=== PATIENT | male | born 1960 | race Caucasian/White ===

== ENCOUNTER 2023-12-10 16:01 | Emergency (ER) | payer BC, SELFPAY ==
[2023-12-10 16:11] VITALS: BP 139/77; PULSE 84; RESP 16; TEMP 37.9; O2SAT 95
[2023-12-10 16:59] VITALS: BP 129/76; PULSE 84; RESP 16; TEMP 37.7; O2SAT 96
--- NOTE | 2023-12-10 17:01 | W.ED.GENAD ---
Discharge Plan Disposition Patient Disposition: Home Condition: Stable Discharge Details Clinical Impression: Sinusitis Primary Care Provider: None,None ED Provider: Jakob Mcadams Home Meds and New Rx's Prescriptions: New amoxicillin-pot clavulanate 875-125 mg tablet 1 tab PO BID 10 Days Qty: 20 0RF Continued Ezallor Sprinkle 10 mg capsule, sprinkle 20 mg PO DAILY amlodipine 5 mg tablet 5 mg PO DAILY aspirin 325 mg capsule 325 mg PO DAILY hydrochlorothiazide 25 mg tablet 25 mg PO DAILY Discharge Instructions Instructions: Amoxicillin and Clavulanate, Sinusitis, Adult ED Additional Instructions: You were seen in the emergency department for your sinus pressure, I am treating empirically for sinusitis with Augmentin, sent to [facility] in [place], please continue your adequate dosing Tylenol and ibuprofen/cold medicine regimen at home. Please stay well-hydrated, please return to the emergency department for severe increase in fever/chills/body aches, rigors, neck stiffness despite treatment. Discharge Data Discharge Date/Time-TO BE ENTERED AT DEPARTURE: 12/10/23 17:48 HPI General Date/Time Provider Initiated Documentation: 12/10/23 16:11. HPI Narrative: 63 year-old male presents to ED today by POV/ambulating with a chief complaint of head / sinus pressure, ongoing for one week, low grade fevers and some rigors reported today. Quality described as like previous bouts of sinusitis, no radiation to high fever, nausea, syncope, dizziness, tinnitus, sore throat, cough, shortness of breath, chest pain. Severity is described as moderate. Palliating factors include taking adequate Tylenol/ibuprofen/cold medicines. Provoking factors include nothing specific. Events leading up to the incident/Associated Symptoms: Patient has had pericarditis from prior bouts of sinusitis. Patient not anticoagulated. Related Data Home Medications ?Medication ?Instructions ?Recorded ?Confirmed amlodipine 5 mg tablet 5 mg PO DAILY 12/10/23 12/10/23 amoxicillin 875 mg-potassium 1 tab PO BID sinusitis 10 days #20 12/10/23 clavulanate 125 mg tablet tabs aspirin 325 mg capsule 325 mg PO DAILY 12/10/23 12/10/23 hydrochlorothiazide 25 mg tablet 25 mg PO DAILY 12/10/23 12/10/23 rosuvastatin 10 mg sprinkle 20 mg PO DAILY 12/10/23 12/10/23 capsule (Ezallor Sprinkle) Previous Rx's ?Medication ?Instructions ?Recorded amoxicillin 875 mg-potassium 1 tab PO BID sinusitis 10 days #20 12/10/23 clavulanate 125 mg tablet tabs Allergies Allergy/AdvReac Type Severity Reaction Status Date / Time No Known Allergies Allergy Unverified 12/10/23 16:15 General Stated Complaint: RespSymp FARIBA: 4 Review of Systems All systems reviewed & are unremarkable except as noted in HPI and below Exam Narrative Exam Narrative: GENERAL APPEARANCE: Well-nourished, non-toxic, awake and alert, atraumatic, no acute distress. SKIN: Warm, pink, dry, intact, without rashes/lesions/ulcerations. HEAD: Normocephalic, atraumatic, normal hair distribution for gender/age. EYES: Normal conjunctiva, no exudates on lids/lashes. ENT: Nares patent, no circumoral cyanosis, no facial swelling, pressure in head above ethmoid sinus- no ethmoid or maxillary sinus tenderness, benign posterior orpharynx, TMs clear bilaterally NECK: Supple, trachea midline, painless cervical ROM. LUNGS/CHEST: Lungs CTA bilaterally, non-labored respirations, normal A/P diameter, symmetrical expansion, no chest wall deformity HEART (CV/PV): Regular rate and rhythm without murmur, no peripheral edema, no JVD. ABDOMEN: Soft, non-distended, no guarding. MSK: Normal ROM, no swelling/deformity to bilateral UEs or LEs, moving all extremities without weakness, no cyanosis, spine midline without tenderness, normal curvature. NEURO: Mental Status AAOx4 - alert to person, place, time, events No facial droop, no forehead involvement. Motor: No focal weakness - strength 5/5 in bilateral UEs and LEs, proximal and distal, symmetric. Sensory: sensation intact to light touch globally. Gait normal: patient ambulated without ataxia into ED room. PSYCH: euthymic, cooperative, pleasant, appropriate speech Course Vital Signs Vital signs: Vital Signs Temperature 37.9 C H 12/10/23 16:11 Pulse 84 12/10/23 16:11 Respiratory Rate 16 12/10/23 16:11 Blood Pressure 139/77 12/10/23 16:11 Pulse Oximetry 95 12/10/23 16:11 Temperature 37.7 C H 12/10/23 16:59 Temperature Source Tympanic 12/10/23 16:59 Pulse 84 12/10/23 16:59 Respiratory Rate 16 12/10/23 16:59 Respiratory Effort Normal 12/10/23 17:01 Respiratory Depth Normal 12/10/23 17:01 Blood Pressure 129/76 12/10/23 16:59 Blood Pressure Mean 93 12/10/23 16:59 Blood Pressure Position Supine 12/10/23 16:59 Pulse Oximetry 96 12/10/23 16:59 Pain Level 0 12/10/23 16:59 Medical Decision Making This dictation utilizes [id number] dictation software and may contain unedited grammatical errors. 63 year-old male presents to ED today by POV/ambulating with a chief complaint of head / sinus pressure, ongoing for one week, low grade fevers and some rigors reported today. Quality described as like previous bouts of sinusitis, no radiation to high fever, nausea, syncope, dizziness, tinnitus, sore throat, cough, shortness of breath, chest pain. Severity is described as moderate. Palliating factors include taking adequate Tylenol/ibuprofen/cold medicines. Provoking factors include nothing specific. Events leading up to the incident/Associated Symptoms: Patient has had pericarditis from prior bouts of sinusitis. Patients' medical history: Hypertension, hyperlipidemia. Family and social history: Noncontributory. Pertinent exam findings / vital signs include lungs clear to auscultation bilaterally, has frontal headache without ethmoid sinus pressure, bilateral TMs clear. Differential / pathologies of concern include sinusitis, viral syndrome, tension headache. Diagnostic studies of: -Rapid COVID/flu antigen test-both negative. Interventions of: -Prescription for Augmentin for sinusitis. ED Course/Assessment/Plan: 63-year-old male presents with low-grade fevers for a week, feels like similar bouts of sinusitis, vitals are unconcerning for systemic infection or sepsis, he has no sign of altered mentation or meningismus, counseled on continuation of his adequate dosing Tylenol and Motrin/cough medicines and a trial of Augmentin for relief. Findings not consistent with meningismus, sepsis. Disposition of sinusitis. Patient verbalized understanding of the plan and return to ED criteria and engaged in shared decision making. Medical Records Medical records reviewed: Yes I reviewed the patient's medical records. Quality:SDOH Health Related Social Needs: No Data to Display PFSH All Active Problems (Updated 12/10/23 @ 17:14 by JARROD Mock) Sinusitis (Acute) Social History Smoking/Tobacco Use Status: Never Smoking risk assessment performed?: Yes Alcohol Intake: never Drug use: Never Housing: house Do you feel safe at home: Yes Do you feel safe in your relationship?: Yes
[2023-12-10] MEDS: Amoxicillin 875/Clav. 125 TAB PO (17:21)
[2023-12-10 17:47] VITALS: PULSE 78; RESP 16; O2SAT 96
== END 2023-12-10 17:48 | disposition home or self-care (01) ==
LOC: ER 17:28
PROVIDERS: Emergency Provider Physician Assistant
DX: J32.9 Chronic sinusitis, unspecified (principal); R50.9 Fever, unspecified
CPT/HCPCS: 99283

== ENCOUNTER 2024-05-04 21:30 | Emergency (ER) | payer OTHER, SELFPAY ==
[2024-05-04] VITALS (20 sets, daily range): BP systolic 103–124; BP diastolic 46–62; PULSE 64–98; RESP 15–24; TEMP 37.2; O2SAT 92–98
--- NOTE | 2024-05-04 21:30 | RT.EKG_ITS ---
APPROVED REPORT Exam: Resting ECG Reason for Exam: Resp symptoms Patient Location: E HR:88 bpm ECG Measurements Heart Rate 88 AXIS OH 186 P 20 QRSd 101 QRS -15 QT 362 T 8 QTc 439 Conclusion Sinus rhythm...normal P axis, V-rate 60- 99 No STEMI
--- NOTE | 2024-05-04 21:32 | ED.GENADUL_ITS ---
Discharge Plan Disposition Patient Disposition: Home Discharge Details Clinical Impression: COVID-19 Primary Care Provider: None,None ED Provider: Chris Ballesteros Home Meds and New Rx's Prescriptions: Continued Ezallor Sprinkle 10 mg capsule, sprinkle 20 mg PO DAILY amlodipine 5 mg tablet 5 mg PO DAILY aspirin 325 mg capsule 325 mg PO DAILY hydrochlorothiazide 25 mg tablet 25 mg PO DAILY amlodipine-valsartan 5-160 mg tablet 1 tab PO DAILY Discharge Instructions Additional Instructions: You are seen in the emergency department for your COVID infection. Your blood work shows that you did not have any acute electrolyte abnormalities. Please take this nausea medication as directed. Please return to the emergency department if you cannot eat or drink or if you do not urinate at least once every 8 hours while awake. Otherwise please follow-up with her primary care provider within the next week. HPI General Date/Time Provider Initiated Documentation: 05/04/24 21:32 . HPI Narrative: MDM There is an overall well-appearing normothermic and not tachycardic 64-year-old vaccinated male with COVID infection for the past several days with nausea and vomiting and decreased p.o. for which he received 1 L of Plasma-Lyte. No pain out of proportion to suggest necrotizing soft tissue infection. No hypoxia to suggest benefit from dexamethasone. No abnormal lung sounds so is not suspicious for superimposed bacterial pneumonia so I do not feel the patient required a chest x-ray. Patient is soft nontender abdomen so not suspicious for intra-abdominal infection. No right lower quadrant tenderness to suggest appendicitis. No left lower quadrant tenderness to suggest diverticulitis. Patient does have CKD so we will treat with acetaminophen which patient received prehospital. Will discharge with ondansetron. Patient discussed return indications including chest pain syncope inability tolerate p.o. Will complete p.o. trial in the ED. 11:15pm Patient felt improved. He tolerated PO. He understood return indications. HPI This is a 64-year-old male with history of hypertension arrived to the emergency department via EMS in the setting of COVID infection. Patient notes that he has felt ill for the past several days. Yesterday afternoon at 2 PM he swabbed positive for COVID. He went to urgent care but given his antihypertensives was not eligible for antiviral treatments. Today he was not able to take much by mouth and he began feeling nauseous. He started having dry heaves and felt weak. He has had diarrhea. He is vaccinated against COVID. No syncope. No chest pain dysuria frequency nor abdominal pain. Exam General: Well-appearing in no acute distress speaking in complete sentences. Head: Normocephalic, atraumatic. Eye:Extraocular eye movements intact. No conjunctival injection. No scleral icterus. Ear, nose, mouth, throat: Grossly normal inspection. Normal voice, handling secretions normally. Neck: Trachea midline. Cardiovascular: Well-perfused distal extremities.Regular rate and rhythm. Respiratory: Nonlabored respiration.Clear lungs bilaterally. Gastrointestinal: Nondistended abdomen. Soft nontender abdomen. Musculoskeletal: No edema. Moving all 4 extremities spontaneously. Skin: Normal for age and race, grossly normal temperature and turgor. No acute rash. Neurologic: Alert and appropriate, no apparent acute deficits. Psychiatric: Mood and manner are appropriate. Grooming and personal hygiene are appropriate. Related Data Home Medications ?Medication ?Instructions ?Recorded ?Confirmed amlodipine 5 mg tablet 5 mg PO DAILY 12/10/23 05/04/24 aspirin 325 mg capsule 325 mg PO DAILY 12/10/23 05/04/24 hydrochlorothiazide 25 mg tablet 25 mg PO DAILY 12/10/23 05/04/24 rosuvastatin 10 mg sprinkle 20 mg PO DAILY 12/10/23 05/04/24 capsule (Ezallor Sprinkle) amlodipine 5 mg-valsartan 160 mg 1 tab PO DAILY 05/04/24 05/04/24 tablet Allergies Allergy/AdvReac Type Severity Reaction Status Date / Time No Known Allergies Allergy Unverified 05/04/24 21:38 General FARIBA: 4 Medical Decision Making Quality:SDOH Health Related Social Needs: No Data to Display PFSH All Active Problems (Updated 05/04/24 @ 22:31 by Chris Ballesteros MD) COVID-19 (Acute) Social History Smoking/Tobacco Use Status: Never Smoking risk assessment performed?: Yes Alcohol Intake: never Drug use: Never Housing: house Do you feel safe at home: Yes Do you feel safe in your relationship?: Yes
[2024-05-04 22:02] LABS: Abs Immature Grans 0.02 10^3/uL (0.0-0.06); Absolute Basophil Count 0.07 10^3/uL (0.0-0.2); Absolute Eosinophil Count 0.37 10^3/uL (0.0-0.7); Absolute Lymphocyte Count 1.05 10^3/uL (1.2-3.4); Absolute Monocyte Count 0.61 10^3/uL (0.1-0.8); Absolute Neutrophil Count 5.73 10^3/uL (1.2-6.7); Basophils % 0.9 %; Eosinophils % 4.7 %; HCT 41.2 % (40.0-50.0); HGB 14.5 g/dL (13.5-17.5); Immature Grans % 0.3 %; Lymphocytes % 13.4 %; MCH 30.3 pg (27.0-33.0); MCHC 35.2 % (32.0-36.0); MCV 86 fL (80-95); MPV 9.5 fL (8.0-11.0); Monocytes % 7.8 %; Neutrophils % 72.9 %; Platelet Count 219 10^3/uL (130-400); RBC 4.78 10^6/uL (4.36-5.78); RDW 12.2 % (11.8-14.1); RDW-SD 38.3 fL; WBC 7.85 10^3/uL (4.4-10.8)
[2024-05-04 22:11] LABS: Anion Gap 9.7 mmol/L (3-11); BUN 15 mg/dL (7-18); CO2 29.3 mmol/L (21.0-32.0); CREATININE 1.6 mg/dL (0.70-1.30); Calcium 8.7 mg/dL (8.5-10.1); Chloride 98 mmol/L (98-107); Estimated GFR 47.52 (mL/min/1.73m2); Glucose 121 mg/dL (74-106); Potassium 3.5 mmol/L (3.5-5.1); Sodium 137 mmol/L (136-145)
[2024-05-04] MEDS: Ondansetron O.D.T. 4 MG TABEF, 3 TABS/BTL PO (23:18)
== END 2024-05-04 23:20 | disposition home or self-care (01) ==
LOC: ER 22:58
PROVIDERS: Emergency Provider Emergency Medicine
DX: U07.1 COVID-19 (principal); I10 Essential (primary) hypertension; Z79.82 Long term (current) use of aspirin
CPT/HCPCS: 80048; 93005; 85025; 93010

== ENCOUNTER 2025-01-07 15:47 | Emergency (ER) | payer OTHER, SELFPAY ==
[2025-01-07 15:56] VITALS: BP 125/69; PULSE 73; RESP 20; TEMP 36.4; O2SAT 95
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
--- NOTE | 2025-01-07 16:29 | DI.RAD_ITS ---
Exam(s) XR CHEST 2V PA LATERAL EXAM: XR CHEST 2V PA LATERAL CLINICAL HISTORY: Shortness of breath. TECHNIQUE: 2D digital imaging was performed. COMPARISON: No exams were available for comparison FINDINGS: 2 views: Heart size is normal. The mediastinum is not widened. Right lung is clear. There is platelike atelectasis in the left lung adjacent to the left heart border in the superior lingular segment of the left lung. No confluent infiltrates. No pleural effusions. No pulmonary edema. IMPRESSION: Subsegmental platelike atelectasis or scarring in the superior lingular segment of the left lung. DATA REPOSITORY: RADIATION DOSE DELIVERED:
[2025-01-07] MEDS: Acetaminophen 500 MG TAB 1000 MG PO (16:38)
[2025-01-07] MEDS: Lidocaine 5% Patch 1 PATCH TP (16:38)
[2025-01-07] MEDS: Ketorolac 15 MG/ML VIAL IM (16:38)
[2025-01-07] MEDS: Ondansetron O.D.T. 4 MG TABEF PO (16:38)
== END 2025-01-07 17:31 | disposition home or self-care (01) ==
LOC: ER 16:38
PROVIDERS: Emergency Provider Emergency Medicine
DX: S20.419A Abrasion of unspecified back wall of thorax, initial encounter (principal); V86.61XA Passenger of ambulance or fire engine injured in nontraffic accident, initial encounter
CPT/HCPCS: 99284; 99283; 96372; 71046; J1885